=== PATIENT | female | born 1940 | race Caucasian/White ===

== ENCOUNTER 2018-12-25 10:03 | Emergency (ER) | payer MEDICARE ==
[~2018-12-25] VITALS: Ht 165.1 cm; Wt 72.6 kg
[2018-12-25 10:23] VITALS: Ht 165.1 cm; Wt 72.6 kg
[2018-12-25 10:49] LABS: BASOPHIL % 0.2 % (0-2); PLATELET COUNT 250 x10^3mcL (130-400)
[2018-12-25 10:51] LABS: RED CELL DISTRIBUTION WIDTH 18.7 % (11.5-14.5)
[2018-12-25 10:59] LABS: CALCIUM 8.8 mg/dL (8.5-10.1); CARBON DIOXIDE 25.1 mmol/L (21-32); CHLORIDE SERUM 106 mmol/L (98-107); CREATININE SERUM 0.7 mg/dL (0.6-1.0); GLUCOSE SERUM 127 mg/dL (74-106); POTASSIUM SERUM 4.4 mmol/L (3.5-5.1); SODIUM SERUM 139 mmol/L (136-145)
[2018-12-25 11:04] LABS: ALBUMIN 3.5 g/dL (3.4-5.0); ALKALINE PHOSPHATASE 93 U/L (46-116); ALT/SGPT 21 U/L (14-59); AST/SGOT 21 U/L (15-37); BILIRUBIN TOTAL 0.6 mg/dL (0.20-1.00)
[2018-12-25 12:59] VITALS: BP 132/68
== END 2018-12-25 12:59 | disposition home or self-care (01) ==
LOC: ED 10:03
PROVIDERS: Emergency Medicine
DX: J11.1 Influenza due to unidentified influenza virus with other respiratory manifestations (principal); R11.2 Nausea with vomiting, unspecified
CPT/HCPCS: 36415; 83880; 87804; Q0162